=== PATIENT | male | born 1940 | race Caucasian/White ===

== ENCOUNTER 2016-12-27 10:31 | Inpatient (IN) | payer MEDICARE, BC ==
--- NOTE | ~2016-12-27 | CN ---
Consultation Report [facility] [address] [place]. [address] NAME: OMAIRA EDDY : 39 STATUS : ADM Herminia PAT#: [id number] AGE: 76 ADM/REG DATE : 12/27/16 MR#: [id number] REPORT SERV DATE: 12/28/16 DICTATED BY: FLAVIO RON DATE: 12/28/16 REPORT STATUS : Draft TRANSCRIBED BY: MODL DATE: 12/28/16 CONSULT DATE OF CONSULTATION: HISTORY OF PRESENT ILLNESS: This is a very pleasant 76-year-old male who has a two-week history of some really lower abdominal pain. He describes it as constant, but it some times increases in intensity. He has lost his appetite. He does not have attacks of pain. It has been years since he has had a colonoscopy. He has had some constipation. He has often hard stools. He has not really taken laxatives. He does complain of some bloating. Defecation does not really relieve the pain. Studies here included a CT scan, which was fairly unremarkable, though was noncontrast. Some times, the pain radiates to his back. PAST MEDICAL HISTORY: Parkinson disease, hypertension, nonsmoker. MEDICATIONS: Norvasc, aspirin, Sinemet, Zetia. PHYSICAL EXAMINATION: GENERAL: In no acute distress. VITAL SIGNS: Blood pressure 180/70, heart rate 60, 02 saturation 98%. CHEST: Clear. CARDIAC: Normal. ABDOMEN: Really quite soft. Nontender. LABORATORY DATA: His laboratory work shows some mild anemia with some macrocytosis. His BUN was up, which improves with hydration. His albumin is 4.0. AST is greater than ALT. In addition, the CT showed some possible irregularity to the liver contour, suspicious for cirrhosis. IMPRESSION: 1. The patient with a really lower quadrant pain, weight loss, anorexia. He does have small gallstones on CT but clearly, this is not the cause of his symptoms. Also has constipation. 2. Questionable findings on the liver of irregular contour, though his liver chemistries look good. Albumin is good, though there is a reversed AST/ALT ratio. Differential diagnosis: One can possibly consider some gastrointestinal motility disorder, probably related to his Parkinson disease; no evidence of obstructing lesion at this point; or some sort of underlying malignant process such as pancreatic, which was not visualized on his scans. PLAN: 1. We will start p.o. laxatives. Consultation Report [facility] [address] [place]. [address] NAME: OMAIRA EDDY : 39 STATUS : ADM Herminia PAT#: [id number] AGE: 76 ADM/REG DATE : 12/27/16 MR#: [id number] REPORT SERV DATE: 12/28/16 DICTATED BY: FLAVIO RON DATE: 12/28/16 REPORT STATUS : Draft TRANSCRIBED BY: MODL DATE: 12/28/16 2. We will check CA-19-9. 3. Could consider endoscopic evaluation, but we will leave that to Dr. Lane. MG/ALICIA Flavio Ron M.D. / [id number] CC: MD Morteza Shah M.D.
--- NOTE | ~2016-12-27 | CN ---
Consultation Report [address] [place]. [address] NAME: OMAIRA EDDY : 39 STATUS : DIS IN PAT#: [id number] AGE: 76 ADM/REG DATE : 12/28/16 MR#: [id number] REPORT SERV DATE: 01/01/17 DICTATED BY: CHRISTIANO STEIN III DATE: 01/01/17 REPORT STATUS : Draft TRANSCRIBED BY: MODL DATE: 01/01/17 CONSULTATION DATE OF CONSULTATION: 12/30/2016 REASON FOR CONSULT: 1. Abdominal pain. 2. Gallstones. 3. Recommendation regarding surgical management. HISTORY OF PRESENT ILLNESS: I am asked to see this 76-year-old male in the hospital for the above reasons. The patient was admitted to the hospital on 12/27/2016 with abdominal pain. The patient is somewhat vague regarding the location of his pain. He describes nausea. He describes lower abdominal pain and back pain and decreased appetite. He states this has been ongoing for two weeks. He also describes symptoms of reflux. He states he has had some weight loss. The patient states that he feels better today and is anxious to go home. He has been told that he has gallstones but he is not interested in having surgical intervention. He has been seen by Dr. Lane, his GI physician who plans to follow him as an outpatient with possible further workup. He has also been seen by Dr. Gusman of GI medicine who feels that his symptoms are not related to gallbladder disease. PAST MEDICAL HISTORY: 1. History of Parkinson's disease. 2. Diabetes mellitus. 3. Hypertension. PAST SURGICAL HISTORY: 1. Appendectomy. 2. Cataract surgery. FAMILY HISTORY: Positive for throat cancer. ALLERGIES: TETANUS VACCINE. MEDICATIONS: Norvasc, Sinemet, Zetia, Hyzaar, metformin, Lopid. REVIEW OF SYSTEMS: The patient's 14-point review of systems otherwise unremarkable. His pain is primarily in the mid abdomen and lower abdomen. He was described on admission as having some upper abdominal pain which could be consistent with biliary colic. PHYSICAL EXAMINATION: Consultation Report [facility] [id number] [facility] [place]. [address] NAME: OMAIRA EDDY : 39 STATUS : DIS IN PAT#: [id number] AGE: 76 ADM/REG DATE : 12/28/16 MR#: [id number] REPORT SERV DATE: 01/01/17 DICTATED BY: CHRISTIANO STEIN III DATE: 01/01/17 REPORT STATUS : Draft TRANSCRIBED BY: ALICIA DATE: 01/01/17 GENERAL: This is a male, in no acute distress. He is alert and oriented x3. HEENT: Unremarkable. Cranial nerves 2 through 12 normal. LUNGS: Clear. CARDIAC: Normal. ABDOMEN: Soft and completely nontender. EXTREMITIES: Normal with no edema. VITAL SIGNS: Blood pressure 131/75, temp 97.4, pulse 77. LABORATORY: Doppler mesenteric ultrasound is normal with no definite evidence for arterial occlusion although the study was somewhat technically difficult. Gallbladder ultrasound confirms gallstones with no evidence for cholecystitis. CT scan of the abdomen and pelvis on admission shows small gallstones with no evidence for biliary obstruction or cholecystitis. There were findings consistent with possible cirrhosis. Electrolytes are unremarkable and liver enzymes are normal. CEA is normal. White blood cell count 4.0, hematocrit 32. ASSESSMENT: 1. 76-year-old male with resolving abdominal pain and nausea. The etiology for this is unclear. The patient has at least some symptoms consistent with biliary colic concluding his nausea and upper abdominal discomfort. However, his pain is somewhat vague and nonspecific in nature. He has also had lower abdominal pain. I believe the patient may have some evidence of chronic cholecystitis and likely will eventually become more symptomatic. 2. Parkinson's disease. 3. Diabetes mellitus. 4. Gastroesophageal reflux disease. 5. Gastritis, on endoscopy. 6. History of appendectomy. 7. Diabetes mellitus. PLAN: The patient is stable at this time and is anxious to go home. He has no evidence or need for acute surgical intervention. He does have gallstones and I feel he does have some symptoms consistent with chronic cholecystitis and that cholecystectomy should be considered. The patient is not interested in this at this time and plans to follow up with Dr. Lane. A HIDA scan is pending prior to discharge. I have discussed with the patient the complications which could occur in the presence of gallstones without surgery, including recurrent episodes of biliary colic, cholecystitis or biliary pancreatitis or obstructive jaundice with cholangitis which could be life-threatening. The patient does not wish to have surgery at this time. I have given him my number and asked him to call if he had symptoms of biliary colic which I have discussed with him, which would be the indication definitely for laparoscopic cholecystectomy. Again at this time the patient is anxious to go home after the HIDA scan which is pending for today. He will follow up with Dr. Lane, the GI physician. He has no evidence for an acute surgical abdomen or need for acute surgical intervention but I do feel that he may have symptoms of biliary colic in the future requiring cholecystectomy. I will be happy to see him again as needed. Consultation Report [place] [id number] [facility] [place]. [address] NAME: OMAIRA EDDY : 39 STATUS : DIS IN PAT#: [id number] AGE: 76 ADM/REG DATE : 12/28/16 MR#: [id number] REPORT SERV DATE: 01/01/17 DICTATED BY: CHRISTIANO STEIN III DATE: 01/01/17 REPORT STATUS : Draft TRANSCRIBED BY: ALICIA DATE: 01/01/17 Devante/ALICIA Christiano Stein III, M.D. / [id number] CC: MD Osvaldo Shah M.D.
--- NOTE | ~2016-12-27 | HP ---
History And Physical [facility] [address] [place]. [address] NAME: OMAIRA EDDY : 39 STATUS : ADM Herminia PAT#: [id number] AGE: 76 ADM/REG DATE : 12/27/16 MR#: [id number] REPORT SERV DATE: 12/27/16 DICTATED BY: KENNEDY SANTOS DATE: 12/27/16 REPORT STATUS : Draft TRANSCRIBED BY: MODL DATE: 12/27/16 DATE OF ADMISSION: 12/27/2016 HISTORY OF PRESENT ILLNESS: The patient is a very pleasant 76-year-old male, who presented to [facility] accompanied with his with a complaint of nausea and pain in the upper abdomen with radiation to the back, decreased appetite, and significant weight loss within the last two weeks. The patient presented with his and she was giving more details that the patient lost his appetite and he was not eating much food. He was also having reflux-type symptoms which was severe, as well as he did not want to eat much. He lost approximately 20 pounds. His weight was 195 pounds and recently he had weight measurement 170, it was like within less than one month. He is daily constipated, but he had a good bowel movement two days ago. The patient is complaining of pain in the upper abdomen pain. The pain is in the epigastric area in the right upper quadrant and in the left upper quadrant and the pain radiates to the back and he is having severe back pain. He is also having low energy level. He is dehydrated and not feeling well. PAST MEDICAL HISTORY: Known for history of Parkinson disease, hypertension, and diabetes. SURGICAL HISTORY: Include appendectomy and cataract surgery. SOCIAL HISTORY: He quit smoking 40 years ago. Before he used to smoke 2+ packs of cigarettes a day. No alcohol. No recreational drug use. FAMILY HISTORY: Mother had a throat cancer. Father of aneurysm of the aorta. ALLERGIES: HE IS ALLERGIC TO TETANUS VACCINE AND TOXOID AND HAD ADVERSE REACTION TO STATINS. HOME MEDICATIONS: Include Norvasc 5 mg a day, aspirin 81 mg a day, Sinemet 25/100 four tablets with meals, one tablet at bedtime, vitamin B12 2000 mg a day, Zetia 10 mg a day, Lopid 600 mg a day, Hyzaar 100/12.5 daily, and metformin 500 mg with breakfast. REVIEW OF SYSTEMS: All fourteen-point review of systems done and negative except what is stated in the history of present illness. PHYSICAL EXAMINATION: GENERAL: Well-nourished, well-developed male, not in acute distress, resting quietly. VITAL SIGNS: Blood pressure initially when I saw the patient, was 180/70, then came down to 160/75, heart rate 62, respirations 16, and oxygen saturation 98 on room air. Temperature 97.5. HEENT: Head atraumatic, normocephalic. Conjunctivae clear. Pupils are equal and reactive to light and accommodation. Extraocular muscles are intact. NECK: Supple. Trachea is midline. No supraclavicular or cervical lymphadenopathy. LUNGS: Diminished breath sounds bilaterally. Decreased respiratory effort. CARDIOVASCULAR SYSTEM: Regular rate and rhythm with occasional premature contractions. Kgbgj-ze-khhsnwe impulse not displaced. History And Physical [address] [address] NAME: OMAIRA EDDY : 39 STATUS : ADM Herminia PAT#: [id number] AGE: 76 ADM/REG DATE : 12/27/16 MR#: [id number] REPORT SERV DATE: 12/27/16 DICTATED BY: KENNEDY SANTOS DATE: 12/27/16 REPORT STATUS : Draft TRANSCRIBED BY: ALICIA DATE: 12/27/16 ABDOMEN: There is tenderness to palpation in the right upper quadrant, epigastric area, and also left upper quadrant. Most of the pain patient locates in the right upper quadrant. It looks like he has a positive Dodd sign. There is no guarding. No rebound. There is no pain in other areas of abdomen and overall benign abdominal examination with positive normoactive bowel sounds. EXTREMITIES: No clubbing, cyanosis, or edema. NEUROLOGICAL: He is awake, alert, oriented in time, place, person. Muscle strength is 5/5 bilaterally on upper and lower extremities. I cannot appreciate any rigidity in his arms and legs and I do not see any resting tremor. PSYCHIATRIC: Normal mood, but flat affect with decreased energy level. SKIN: Normal color, slightly decreased turgor. LABORATORY RESULTS: Sodium 139, potassium 4.2, chloride 102, carbon dioxide 26, BUN 40, creatinine 1.28, blood sugar 111. Magnesium 2.4. ALT 7, AST 14. Lipase 161. Troponin less than 0.02. Total bilirubin is 1. Alkaline phosphatase 83. His white count 3.8, hemoglobin 11.8, hematocrit 34.4, MCV 100.6, and platelet count 196. PT 14.4, INR 1.1. Urinalysis did not show any evidence of infection. Chest x-ray, no acute cardiopulmonary process. CT of the abdomen and pelvis without contrast. Nonobstructing left 2 mm renal parenchymal calculus, small gallstones in the gallbladder. No evidence of biliary obstruction or acute cholecystitis. Findings suspicious for hepatic cirrhosis. No liver mass. No ascites. EKG showed sinus rhythm with some premature ventricular contractions with right bundle-branch block present and inferior infarctions of indeterminate age. ASSESSMENT AND PLAN: 1. A 76-year-old male with a past medical history of hypertension, diabetes, Parkinson disease, presented with right upper abdominal pain, more pain in the right upper quadrant and epigastrium and left upper quadrant and radiation to the back and causing severe back pain. Differential diagnoses will include cholecystitis, as well as possible pancreatic problem, as well as possible stomach problem. I am going to order ultrasound of the gallbladder to see if there is evidence of gallstone disease, cholecystitis, as well as it will delineate structure of the liver with possible cirrhosis of the liver. I think the patient needs to see field return repairer to rule out possible stomach ulcer or other problems in the stomach, as well as I dictated above, pancreatic problems with pain radiation to the back is also a possibility. Depending on the ultrasound gallbladder results, he may have HIDA scan and later on MRI of the abdomen with attention to the pancreas, as well as possible upper endoscopy. His field return repairer is Dr. Lane, who is going to be consulted. I will put him on the Protonix p.o. with his Gastroesophageal reflux disease. 2. Decreased appetite and dehydration definitely is related to his pain and inability to eat. We will start him on IV fluids and Protonix. 3. Anemia of unclear etiology with basically decreased white count, as well as some kind of pancytopenia picture with elevated mean corpuscular volume. We will check serum B12 and folate level, but this is also points to the liver disease. 4. Hypertension, uncontrolled. Blood pressure elevated. We will put him on hydralazine p.r.n. and continue his blood pressure medications. History And Physical [facility] [address] [place]. [address] NAME: OMAIRA EDDY : 39 STATUS : ADM Herminia PAT#: [id number] AGE: 76 ADM/REG DATE : 12/27/16 MR#: [id number] REPORT SERV DATE: 12/27/16 DICTATED BY: KENNEDY SANTOS DATE: 12/27/16 REPORT STATUS : Draft TRANSCRIBED BY: MODL DATE: 12/27/16 5. Prerenal azotemia. IV fluids will be started. 6. Abnormal electrocardiogram with some premature ventricular contractions, likely from electrolyte abnormalities. We will check his magnesium as well. If low, will be replaced by protocol. 7. Reasonable pain and nausea control. 8. Parkinsonism. We will continue his Sinemet. The plan of treatment was discussed with the patient's and my partner will see this patient starting tomorrow morning. MG/MODL Kennedy Santos M.D. / [id number] CC: MD Osvaldo Shah M.D. Alan Shikoh, M.D.
--- NOTE | ~2016-12-27 | DS ---
Discharge Summary [facility] [address] [place]. [address] NAME: OMAIRA EDDY : 39 STATUS : DIS IN PAT#: [id number] AGE: 76 ADM/REG DATE : 12/28/16 MR#: [id number] REPORT SERV DATE: 12/31/16 DICTATED BY: NICHO REYES DATE: 12/30/16 REPORT STATUS : Draft TRANSCRIBED BY: MODL DATE: 12/30/16 ADMISSION DATE: 12/28/2016 DISCHARGE DATE: 12/30/2016 PRINCIPAL DIAGNOSES: Acute gastritis and gastroesophageal reflux disease with abdominal pain. SECONDARY DIAGNOSES: Parkinson disease, hypertension, constipation, and gallstones with cholecystitis. HISTORY OF PRESENT ILLNESS: Please see Dr. Hall's dictation on 12/27/2016. HOSPITAL COURSE: The patient admitted with abdominal pain. CT was negative. EGD showed gastritis. Ultrasound showed gallstones without cholecystitis. HIDA scan was ordered, but the patient refused to undergo the HIDA scan on 12/30/2016, he wished only to go home. Arrangements were made for him to in fact to go home. Due to the volume depletion at admission he was given Cozaar without the hydrochlorothiazide, Norvasc was increased to 10 mg daily, and Carafate and Protonix were added to his daily regimen. He will follow up with Dr. Osvaldo Hu in one to two weeks. Greater than 30 minutes were spent with the patient on discharge planning on discharge day. ROBER/ALICIA Nicho Reyes M.D. / [id number] CC: Kishore Gregory M.D.
--- NOTE | ~2016-12-27 | EGD ---
EGD REPORT [facility] [address] [place] [address] NAME: OMAIRA ARCINIEGA : 39 STATUS : ADM Herminia PAT#: [id number] AGE: 76 ADM/REG DATE : 12/27/16 MR#: [id number] REPORT SERV DATE: 12/29/16 DICTATED BY: SHAWNA COUCH DATE: 12/29/16 REPORT STATUS : Draft [facility]ANSCRIBED BY: [facility] DATE: 12/29/16 [facility] Patient Name: Omaira Arciniega Date of : 1940 Attending MD: SHAWNA COUCH MD Procedure Date No Time: 12/29/2016 Procedure: Upper GI endoscopy Indications: Generalized abdominal pain, Anorexia, Nausea, Weight loss Referring MD: GABRIELA DAMIAN Medicines: Propofol per Anesthesia Complications: No immediate complications. Estimated blood loss: None. Procedure: Pre-Anesthesia Assessment: - After reviewing the risks and benefits, the patient was deemed in satisfactory condition to undergo the procedure. - Prior to the procedure, a History and Physical was performed, and patient medications and allergies were reviewed. The patient's tolerance of previous anesthesia was also reviewed. The risks and benefits of the procedure and the sedation options and risks were discussed with the patient. All questions were answered, and informed consent was obtained. Prior Anticoagulants: The patient has taken no previous anticoagulant or antiplatelet agents. ASA Grade Assessment: III - A patient with severe systemic disease. After reviewing the risks and benefits, the patient was deemed in satisfactory condition to undergo the procedure. After obtaining informed consent, the endoscope was passed under direct vision. Throughout the procedure, the patient's blood pressure, pulse, and oxygen saturations were monitored continuously. The GIF [id number] was introduced through the mouth, and advanced to the jejunum. The upper GI endoscopy was accomplished without difficulty. The patient tolerated the procedure well. Findings: The examined esophagus was normal. Diffuse moderate inflammation characterized by congestion (edema) and erythema was found in the gastric antrum. Biopsies were taken with a cold forceps for histology. Estimated blood loss: none. The gastroesophageal junction (on retroflexion) was normal. The examined duodenum was normal. Biopsies were taken with a cold forceps for histology. Estimated blood loss: none. EGD REPORT [address] [address] NAME: OMAIRA ARCINIEGA : 39 STATUS : ADM Herminia PAT#: [id number] AGE: 76 ADM/REG DATE : 12/27/16 MR#: [id number] REPORT SERV DATE: 12/29/16 DICTATED BY: SHAWNA COUCH DATE: 12/29/16 REPORT STATUS : Draft TRANSCRIBED BY: [email or web address] DATE: 12/29/16 Impression: - Normal esophagus. - Chronic gastritis. Biopsied. - Normal gastroesophageal junction. - Normal examined duodenum. Biopsied. - GERD. - Cholelithiasis. 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 - Symptomatic constipation. - Mild anemia with Hgb 12.1 and macrocytosis. Recommendation: - [facility]. - Full liquid diet. - Protonix 40 mg BID. - Carafate suspension 1 gram TID. - Continue Amitiza 24 mcg BID and Miralax 17 grams daily. - HIDA scan. - Surgical consult. - If he continues to improve, could likely go home soon on therapy for gastritis and constipation with outpatient follow-up and consideration of elective outpatient colonoscopy. Procedure Code(s): --- Professional --- 15218, Esophagogastroduodenoscopy, flexible, transoral; with biopsy, single or multiple Diagnosis Code(s): --- Professional --- K29.50, Unspecified chronic gastritis without bleeding K21.9, Gastro-esophageal reflux disease without esophagitis R10.84, Generalized abdominal pain R63.0, Anorexia R11.0, Nausea R63.4, Abnormal weight loss CPT copyright 2013 [employer]. All rights reserved. The codes documented in this report are preliminary and upon colliery clerk review may be revised to meet current compliance requirements. SHAWNA COUCH MD 12/29/2016 2:24 PM This report has been signed electronically. Number of Addenda: 0 EGD REPORT [facility] [address] [place] [address] NAME: OMAIRA ARCINIEGA : 39 STATUS : ADM Herminia PAT#: [id number] AGE: 76 ADM/REG DATE : 12/27/16 MR#: [id number] REPORT SERV DATE: 12/29/16 DICTATED BY: SHAWNA COUCH. DATE: 12/29/16 REPORT STATUS : Draft TRANSCRIBED BY: [email or web address] DATE: 12/29/16 Note Initiated On: 12/29/2016 1:45 PM Scope Withdrawal Time 0 hours 0 minutes 0 seconds [address] [place] [address]
[2016-12-27 10:59] LABS: BASOPHILS 0.5 %; BASOPHILS ABSOLUTE 0.02 10/3/uL (0.0-0.16); EOSINOPHILS 0.8 %; EOSINOPHILS ABSOLUTE 0.03 10/3/uL (0.0-0.53); HEMATOCRIT 34.4 % (40.0-51.0); HEMOGLOBIN 11.8 g/dL (13.6-17.8); LYMPHOCYTES 35.2 %; LYMPHOCYTES ABSOLUTE 1.35 10/3/uL (0.67-4.30); MEAN CORPUS HGB CONC 34.3 g/dL (32.0-36.0); MEAN CORPUSCULAR HEMOGLOB 34.5 pg (26.0-34.0); MEAN CORPUSCULAR VOLUME 100.6 fL (80-100); MEAN PLATELET VOLUME 10.6 fL (9.2-13.0); MONOCYTES ABSOLUTE 0.27 10/3/uL (0.21-1.20); NEUTROPHILS 56.5 %; NEUTROPHILS ABSOLUTE 2.17 10/3/uL (2.02-8.40); PLATELET COUNT 196 10/3/uL (150-400); RBC DISTRIBUTION WIDTH 12.3 % (12.0-16.0); RED CELL COUNT 3.42 10/6/uL (4.7-6.1); WHITE BLOOD CELLS 3.8 10/3/uL (4.5-10.5)
[2016-12-27 11:01] LABS: MANUAL DIFF NO %
[2016-12-27 11:07] LABS: INTERNATIONAL NORMAL RATI 1.1 UNITS (-); PARTIAL THROMBO TIME 26.2 SEC (22.5-37.2); PROTIME (NOT ORD) 14.4 SEC (12.0-14.5)
[2016-12-27 11:55] LABS: CALCIUM, SERUM 9.5 MG/DL (8.5-10.4); CHEST PAIN PROFILE TAT 1 Hrs 00 Mins; CHLORIDE, SERUM 102 MMOL/L (96-112); CO2 (CARBON DIOXIDE) 26 MMOL/L (24-34); CREATININE 1.28 MG/DL (0.70-1.30); DIRECT BILIRUBIN 0.3 MG/DL (0.0-0.4); GFR AFRICAN AMERICAN 62 ML/MIN (>=60); GFR NON AFRICAN AMERICAN 54 ML/MIN (>=60); GLUCOSE, SERUM 111 MG/DL (60-99); INDIRECT BILIRUBIN(NOT ORDER) 0.7 MG/DL (0.1-0.9); POTASSIUM, SERUM 4.2 MMOL/L (3.5-5.3); SGOT(AST) 14 U/L (5-40); SGPT(ALT) 7 U/L (5-65); SODIUM, SERUM 139 MMOL/L (135-148); TOTAL PROTEIN 7.2 G/DL (6.0-8.5); TROPONIN I <0.02 NG/ML (<0.05)
[2016-12-27 11:58] LABS: ALKALINE PHOSPHATASE 83 U/L (45-117); BUN (BLOOD UREA NITROGEN) 40 MG/DL (6-23)
[2016-12-27 13:19] LABS: ASCORBIC ACID (UR NOT ORDER) NEG (NEG); BILIRUBIN, URINE NEGATIVE (NEG); ER URINALYSIS TAT 0 Hrs 12 Mins; KETONE, URINE TRACE MG/DL (NEG); LEUKOCYTE ESTERASE(NOT OR NEG (NEG); NITRITE (URINE) NEG (NEG); WBC (NOT ORDERED) (RFLEX) 1 (0-5)
[2016-12-27] MEDS ORDERED: HYZAAR1 TAB PO (14:26)
[2016-12-27] MEDS ORDERED: ASAB PO (14:27)
[2016-12-27] MEDS ORDERED: NORV10 PO (14:27)
[2016-12-27] MEDS ORDERED: CYANO1000T PO (14:27)
[2016-12-27] MEDS ORDERED: SIN25 PO (14:27)
[2016-12-27] MEDS ORDERED: LOPID6 PO (14:28)
[2016-12-27] MEDS ORDERED: SINCR25100 PO (14:28)
[2016-12-27] MEDS ORDERED: ZETIA PO (14:28)
[2016-12-27] MEDS ORDERED: GLUCPH PO (14:31)
[2016-12-27 18:52] LABS: FOLATE 8.1 NG/ML (>5.2)
[2016-12-27 20:15] LABS: B NATRIURETIC PEPTIDE (BNP) 95.8 PG/ML (< 100.0)
[2016-12-28 05:30] LABS: A/G RATIO 1.2 (0.7-1.9); ALBUMIN 3.8 G/DL (3.5-5.0); ALKALINE PHOSPHATASE 82 U/L (45-117); CALCIUM, SERUM 9.3 MG/DL (8.5-10.4); CHLORIDE, SERUM 104 MMOL/L (96-112); CO2 (CARBON DIOXIDE) 25 MMOL/L (24-34); CREATININE 1.14 MG/DL (0.70-1.30); GFR AFRICAN AMERICAN 71 ML/MIN (>=60); GFR NON AFRICAN AMERICAN 62 ML/MIN (>=60); GLOBULIN 3.3 G/DL (2.5-4.1); SGPT(ALT) 7 U/L (5-65); SODIUM, SERUM 140 MMOL/L (135-148); TOTAL PROTEIN 7.1 G/DL (6.0-8.5)
[2016-12-28 05:34] LABS: BUN (BLOOD UREA NITROGEN) 33 MG/DL (6-23); GLUCOSE, SERUM 85 MG/DL (60-99); POTASSIUM, SERUM 4.3 MMOL/L (3.5-5.3); SGOT(AST) 14 U/L (5-40)
[2016-12-28 05:41] LABS: BASOPHILS 0.4 %; BASOPHILS ABSOLUTE 0.02 10/3/uL (0.0-0.16); EOSINOPHILS 2.2 %; HEMATOCRIT 33.9 % (40.0-51.0); HEMOGLOBIN 11.8 g/dL (13.6-17.8); IMMATURE GRANULOCYTES 0.2 %; IMMATURE GRANULOCYTES ABSOLUTE 0.01 10/3/uL (0.0-0.11); LYMPHOCYTES 40.5 %; LYMPHOCYTES ABSOLUTE 1.84 10/3/uL (0.67-4.30); MEAN CORPUS HGB CONC 34.8 g/dL (32.0-36.0); MEAN CORPUSCULAR HEMOGLOB 35.5 pg (26.0-34.0); MEAN CORPUSCULAR VOLUME 102.1 fL (80-100); MEAN PLATELET VOLUME 10.6 fL (9.2-13.0); MONOCYTES 8.4 %; MONOCYTES ABSOLUTE 0.38 10/3/uL (0.21-1.20); NEUTROPHILS 48.3 %; NEUTROPHILS ABSOLUTE 2.19 10/3/uL (2.02-8.40); PLATELET COUNT 165 10/3/uL (150-400); RBC DISTRIBUTION WIDTH 12.1 % (12.0-16.0); RED CELL COUNT 3.32 10/6/uL (4.7-6.1); WHITE BLOOD CELLS 4.5 10/3/uL (4.5-10.5)
[2016-12-28 05:47] LABS: MANUAL DIFF NO %
[2016-12-28 12:41] LABS: CA-19-9 44.2 U/ML (< 37.0)
[2016-12-28 12:46] LABS: CEA 3.4 NG/ML
[2016-12-29 06:23] LABS: BASOPHILS 0.2 %; BASOPHILS ABSOLUTE 0.01 10/3/uL (0.0-0.16); EOSINOPHILS 0.9 %; EOSINOPHILS ABSOLUTE 0.05 10/3/uL (0.0-0.53); HEMATOCRIT 34.8 % (40.0-51.0); HEMOGLOBIN 12.1 g/dL (13.6-17.8); IMMATURE GRANULOCYTES 0.2 %; IMMATURE GRANULOCYTES ABSOLUTE 0.01 10/3/uL (0.0-0.11); LYMPHOCYTES 26.7 %; LYMPHOCYTES ABSOLUTE 1.42 10/3/uL (0.67-4.30); MEAN CORPUS HGB CONC 34.8 g/dL (32.0-36.0); MEAN CORPUSCULAR HEMOGLOB 35.2 pg (26.0-34.0); MEAN CORPUSCULAR VOLUME 101.2 fL (80-100); MEAN PLATELET VOLUME 10.8 fL (9.2-13.0); MONOCYTES ABSOLUTE 0.53 10/3/uL (0.21-1.20); PLATELET COUNT 160 10/3/uL (150-400); RBC DISTRIBUTION WIDTH 12.1 % (12.0-16.0); RED CELL COUNT 3.44 10/6/uL (4.7-6.1); WHITE BLOOD CELLS 5.3 10/3/uL (4.5-10.5)
[2016-12-29 06:30] LABS: MANUAL DIFF NO %
[2016-12-29 06:31] LABS: CALCIUM, SERUM 9.2 MG/DL (8.5-10.4); CHLORIDE, SERUM 107 MMOL/L (96-112); CO2 (CARBON DIOXIDE) 22 MMOL/L (24-34); CREATININE 0.91 MG/DL (0.70-1.30); GFR AFRICAN AMERICAN 94 ML/MIN (>=60); GFR NON AFRICAN AMERICAN 81 ML/MIN (>=60); GLUCOSE, SERUM 100 MG/DL (60-99); POTASSIUM, SERUM 4.1 MMOL/L (3.5-5.3); SODIUM, SERUM 141 MMOL/L (135-148)
[2016-12-29 06:34] LABS: BUN (BLOOD UREA NITROGEN) 23 MG/DL (6-23)
[2016-12-29 08:12] LABS: ANA TITER <1:40 TITER
[2016-12-29 10:31] LABS: HEPATITIS B CORE AB IGM NON-REACTIVE (NON-REAC); HEPATITIS C ANTIBODY NON-REACTIVE (NON-REACT)
[2016-12-29 11:57] LABS: HEPATITIS B SURFACE ANTIGEN NON-REACTIVE (NON-REACT)
[2016-12-29 12:21] LABS: HEP A ANTIBODY IGM NON-REACTIVE (NON-REACT)
[2016-12-30 02:06] LABS: CALCIUM, SERUM 8.8 MG/DL (8.5-10.4); CHLORIDE, SERUM 108 MMOL/L (96-112); CO2 (CARBON DIOXIDE) 23 MMOL/L (24-34); CREATININE 0.95 MG/DL (0.70-1.30); GFR AFRICAN AMERICAN 89 ML/MIN (>=60); GFR NON AFRICAN AMERICAN 77 ML/MIN (>=60); GLUCOSE, SERUM 94 MG/DL (60-99); PHOSPHORUS, SERUM 2.8 MG/DL (2.5-4.5); POTASSIUM, SERUM 3.7 MMOL/L (3.5-5.3); SODIUM, SERUM 143 MMOL/L (135-148)
[2016-12-30 02:11] LABS: BASOPHILS 0.3 %; BASOPHILS ABSOLUTE 0.01 10/3/uL (0.0-0.16); EOSINOPHILS 2.3 %; EOSINOPHILS ABSOLUTE 0.09 10/3/uL (0.0-0.53); HEMATOCRIT 32.2 % (40.0-51.0); HEMOGLOBIN 11.3 g/dL (13.6-17.8); LYMPHOCYTES 40.5 %; MEAN CORPUS HGB CONC 35.1 g/dL (32.0-36.0); MEAN CORPUSCULAR HEMOGLOB 35.9 pg (26.0-34.0); MEAN CORPUSCULAR VOLUME 102.2 fL (80-100); MEAN PLATELET VOLUME 10.8 fL (9.2-13.0); MONOCYTES 9.6 %; MONOCYTES ABSOLUTE 0.38 10/3/uL (0.21-1.20); NEUTROPHILS 47.3 %; NEUTROPHILS ABSOLUTE 1.87 10/3/uL (2.02-8.40); PLATELET COUNT 150 10/3/uL (150-400); RBC DISTRIBUTION WIDTH 12.1 % (12.0-16.0); RED CELL COUNT 3.15 10/6/uL (4.7-6.1)
[2016-12-30 02:17] LABS: MANUAL DIFF NO %
[2016-12-30 02:18] LABS: BUN (BLOOD UREA NITROGEN) 18 MG/DL (6-23)
[2016-12-30] MEDS ORDERED: COZAAR100 MG PO (15:17)
[2016-12-30 15:22] LABS: ALPHA-1-ANTITRYPSIN 74 mg/dL (100-200)
[2016-12-30] MEDS ORDERED: CARASPUDL PO (15:23)
[2016-12-31 13:37] LABS: MITOCHONDRIAL ANTIBODY Negative (NEG); SMOOTH MUSCLE ANTIBODIES Negative (NEG)
[2017-01-03 18:42] LABS: ALPHA-1-ANTITRYPSIN 82 mg/dL (90-200)
== END 2016-12-30 17:05 | disposition home or self-care (01) | DRG 392 ==
LOC: ER 10:31 → CDU1 15:26 → CDU2 16:05 → 4SO 12-28 17:08
PROVIDERS: Hospitalist; Internal Medicine; Internal Medicine Gastroenterology
PROC: 0DB68ZX Excision of Stomach, Via Natural or Artificial Opening Endoscopic, Diagnostic (ICD-10-PCS; principal; 2016-12-29 13:58)
DX: K29.00 Acute gastritis without bleeding (principal); N17.9 Acute kidney failure, unspecified; G20 Parkinson's disease; K75.81 Nonalcoholic steatohepatitis (NASH); K80.10 Calculus of gallbladder with chronic cholecystitis without obstruction; K21.9 Gastro-esophageal reflux disease without esophagitis; I10 Essential (primary) hypertension; E86.9 Volume depletion, unspecified; Z79.82 Long term (current) use of aspirin; K59.00 Constipation, unspecified; E11.9 Type 2 diabetes mellitus without complications; E86.0 Dehydration
CPT/HCPCS: 71010; 74176; 76705; 78226; 80048; 80053; 80074; 80076; 81001; 82103; 82104; 82140; 82378; 82607; 82746; 82962; 83036; 83690; 83735; 83880; 84100; 84443; 84484; 85025; 85610; 85652; 85730; 86039; 86255; 86301; 88305; 93005; 93975; 96374; 99285; A9270-GY; A9537; J0360; J2405